=== PATIENT | male | born 1970 | race American Indian/Alaskan Native ===

== ENCOUNTER 2017-06-10 21:56 | Emergency (ER) | payer BC ==
[2017-06-10 23:52] LABS: Bilirubin,Urine NEG (Negative); Blood,Urine NEG (Negative); Color,Urine Yellow (Yellow); Mucus,Urine FEW /HPF; Protein,Urine <15 mg/dL mg/dL (Negative); Urobilinogen,Urine < 2.0 mg/dL (<2.0)
[2017-06-10 23:55] LABS: RBC,Urine < 1.0 /HPF (0.0-6.0); WBC,Urine < 1.0 /HPF (0.0-6.0)
[2017-06-11 01:06] VITALS: BP 148/100
[2017-06-11] MEDS ORDERED: TORADOL IM ONE (01:14)
[2017-06-11] MEDS ORDERED: FLEXERIL PO ONE (01:15)
--- NOTE | 2017-06-11 01:17 | Emergency Department Report ---
ED General Adult HPI - General Chief complaint: Back Pain/Injury Stated complaint: RIGHT SIDE PAIN Time Seen by Provider: 06/11/17 01:12 Source: patient Mode of arrival: Ambulatory Limitations: No Limitations - History of Present Illness Initial comments: 46-year-old -[place] male with no past medical history comes in complaining of right thigh pain after lying on the floor all day long. Patient reports that he was laying on the floor got up to go shower decided to go downtown to take a walk came back that an MB and started having right side pain. Patient reports that the pain is intermittent and this worse when he coughs or sneezes. He denies any trauma. It was noted the patient has elevated blood pressure in triage of 180/105. Patient reports that he was not aware that he has elevated blood pressure. He denies any headache no chest pain or shortness of breathing. He denies any dysuria no hematuria or abdominal pain no chest pain. He takes no medications on a daily basis and has no known drug allergies. -: Sudden, This evening Radiation: non-radiation Severity scale (0 -10): 3 Quality: stabbing Consistency: intermittent Improves with: rest Worsens with: movement (sudden movement ) Associated Symptoms: denies other symptoms Treatments Prior to Arrival: none - Related Data Previous Rx's Medication Instructions Recorded Last Taken Type Cyclobenzaprine [Flexeril 10 MG 10 mg PO TID PRN #15 tablet 06/11/17 Unknown Rx TAB] Ibuprofen [Motrin 800 MG tab] 800 mg PO Q8HR PRN #30 tablet 06/11/17 Unknown Rx Allergies Allergy/AdvReac Type Severity Reaction Status Date / Time No Known Allergies Allergy Unverified 06/10/17 23:25 ED Review of Systems ROS: Stated complaint: RIGHT SIDE PAIN Other details as noted in HPI Constitutional: denies: chills, fever Eyes: denies: eye pain, eye discharge, vision change ENT: denies: ear pain, throat pain Respiratory: denies: cough, shortness of breath, wheezing Cardiovascular: denies: chest pain, palpitations Endocrine: no symptoms reported Gastrointestinal: denies: abdominal pain, nausea, diarrhea Genitourinary: denies: urgency, dysuria Musculoskeletal: other (right flank intermittent pain) Skin: denies: rash, lesions Neurological: denies: headache, weakness, paresthesias Psychiatric: denies: anxiety, depression Hematological/Lymphatic: denies: easy bleeding, easy bruising ED Past Medical Hx - Past Medical History Previous Medical History?: No - Surgical History Past Surgical History?: No - Social History Smoking Status: Never Smoker Substance Use Type: None - Medications Home Medications: Home Medications Medication Instructions Recorded Confirmed Last Taken Type Cyclobenzaprine [Flexeril 10 MG 10 mg PO TID PRN #15 tablet 06/11/17 Unknown Rx TAB] Ibuprofen [Motrin 800 MG tab] 800 mg PO Q8HR PRN #30 tablet 06/11/17 Unknown Rx ED Physical Exam - General Limitations: No Limitations General appearance: alert, in no apparent distress - Head Head exam: Present: atraumatic, normocephalic - Eye Eye exam: Present: normal appearance - ENT ENT exam: Present: mucous membranes moist - Neck Neck exam: Present: normal inspection - Respiratory Respiratory exam: Present: normal lung sounds bilaterally. Absent: respiratory distress - Cardiovascular Cardiovascular Exam: Present: regular rate, normal rhythm. Absent: systolic murmur, diastolic murmur, rubs, gallop - GI/Abdominal GI/Abdominal exam: Present: soft, normal bowel sounds - Rectal Rectal exam: Present: deferred - Extremities Exam Extremities exam: Present: normal inspection - Back Exam Back exam: Present: normal inspection, other (right side tenderness) - Neurological Exam Neurological exam: Present: alert, oriented X3 - Psychiatric Psychiatric exam: Present: normal affect, normal mood - Skin Skin exam: Present: warm, dry, intact, normal color. Absent: rash ED Course Vital Signs 06/10/17 06/11/17 23:15 01:05 Temperature 98.7 F 99.0 F Pulse Rate 90 72 Respiratory 18 16 Rate Blood Pressure 180/105 Blood Pressure 148/100 [Right] O2 Sat by Pulse 99 99 Oximetry ED Medical Decision Making - Medical Decision Making Patient's been evaluated with this provider fast track. Discussed the patient that we will try Toradol and Flexeril to help with his right side pain. Since patient denies any shortness of breathing normal respiratory examination no recent traumas we will treat patient conservatively with ibuprofen and Flexeril. I discussed the patient if symptoms persist or gets worse or starts having shortness of breath nausea vomiting diaphoresis to return back to the emergency room immediately patient verbalized understanding Critical care attestation.: If time is entered above; I have spent that time in minutes in the direct care of this critically ill patient, excluding procedure time. ED Disposition Clinical Impression: Right-sided chest wall pain Disposition: TO HOME OR SELFCARE Is pt being admited?: No Does the pt Need Aspirin: No Condition: Stable Instructions: Chest Pain (ED) Additional Instructions: Please take ibuprofen and Flexeril as needed for pain. If symptoms persist or gets worse please return back to the emergency room or follow-up with her primary care provider. Prescriptions: Cyclobenzaprine [Flexeril 10 MG TAB] 10 mg PO TID PRN #15 tablet PRN Reason: Muscle Spasm Ibuprofen [Motrin 800 MG tab] 800 mg PO Q8HR PRN #30 tablet PRN Reason: Pain Referrals: PRIMARY CARE,MD [Primary Care Provider] - 3-5 Days your,provider [Other] - 3-5 Days
== END 2017-06-11 01:30 | disposition home or self-care (01) ==
LOC: ED 21:56
DX: R07.89 Other chest pain (principal); M54.9 Dorsalgia, unspecified; R03.0 Elevated blood-pressure reading, without diagnosis of hypertension
CPT/HCPCS: 81001; 96372; 99283; J1885

== ENCOUNTER 2018-04-09 09:30 | Outpatient (CLI) | payer BC ==
[2018-04-09 10:50] LABS: Basophils % (Auto) 0.3 % (0.0-1.8); Eosinophils # (Auto) 0.1 K/mm3 (0.0-0.4); Eosinophils % (Auto) 2.5 % (0.0-4.3); Hematocrit 39.8 % (35.5-45.6); Hemoglobin 13.8 gm/dl (11.8-15.2); Lymphocytes # (Auto) 2.4 K/mm3 (1.2-5.4); Lymphocytes % (Auto) 46.2 % (13.4-35.0); Mean Corpuscular HGB Conc 35 % (32-34); Mean Corpuscular Volume 79 fl (84-94); Monocytes # (Auto) 0.3 K/mm3 (0.0-0.8); Monocytes % (Auto) 6.3 % (0.0-7.3); Platelet Count 171 K/mm3 (140-440); Red Blood Count 5.04 M/mm3 (3.65-5.03); Red Cell Distribution Width 13.7 % (13.2-15.2)
[2018-04-09 11:08] LABS: Alanine Aminotransferase 60 units/L (7-56); Albumin 4.5 g/dL (3.9-5); BUN/Creatinine Ratio 10; Blood Urea Nitrogen 12 mg/dL (9-20); Calcium 9.6 mg/dL (8.4-10.2); Chol/HDL Ratio 6.87 %; HDL Cholesterol 32 mg/dL (40-59); Hemolysis Index 4; LDL Cholesterol,Direct 182 mg/dL (50-130)
== END 2018-04-09 09:31 | disposition home or self-care (01) ==
LOC: LAB 09:30
PROVIDERS: ATTEND Internal Medicine
DX: Z00.01 Encounter for general adult medical examination with abnormal findings (principal); E78.5 Hyperlipidemia, unspecified
CPT/HCPCS: 36415; 80053; 80061; 82306; 82607; 83036; 84443; 85025

== ENCOUNTER 2019-02-17 09:14 | Outpatient (CLI) | payer BC ==
[2019-02-17 13:10] LABS: Chol/HDL Ratio 4.35 %
[2019-02-20 08:44] LABS: Vitamin D, 25-OH, D2 44 ng/mL
== END 2019-02-17 09:15 | disposition home or self-care (01) ==
LOC: LAB 09:14
PROVIDERS: ATTEND Internal Medicine
DX: R73.03 Prediabetes (principal); E55.9 Vitamin D deficiency, unspecified; E78.5 Hyperlipidemia, unspecified
CPT/HCPCS: 36415; 80061; 82306; 83036

== ENCOUNTER 2019-12-26 07:47 | Day surgery (SDC) | payer BC ==
[2019-12-26] MEDS ORDERED: SODIUM CHLORIDE 0.9% 1000 ML 1,000 ML ONE (08:38)
--- NOTE | 2019-12-26 08:42 | Anesthesia Consultation ---
Anesthesia Consult and Med Hx Date of service: 12/26/19 - Airway Anesthetic Teeth Evaluation: Good ROM Head & Neck: Adequate Mental/Hyoid Distance: Adequate Mallampati Class: Class II Intubation Access Assessment: Probably Good - Cardiac Exam Cardiac Exam: RRR - Pre-Operative Health Status ASA Pre-Surgery Classification: ASA2 Proposed Anesthetic Plan: MAC - Pulmonary Hx Smoking: No Hx Asthma: No Hx Respiratory Symptoms: No SOB: No COPD: No - Cardiovascular System Hx Hypertension: Yes
--- NOTE | 2019-12-26 08:44 | Anesthesia Day of Surgery ---
Anesthesia Day of Surgery - Day of Surgery Patient Examined: Yes Patient H&P Reviewed: Yes Patient is NPO: Yes Beta Blockers: No Franklyn's Test: N/A
[2019-12-26] MEDS ORDERED: SODIUM CHLORIDE 0.9% 1000 ML 1,000 ML IV SCH (09:30)
[2019-12-26] MEDS ORDERED: propofoL 200 MG/20 ML VIAL IV ONE (09:37)
[2019-12-26] MEDS ORDERED: SUCCINYLCHOLINE CHLORIDE 200 MG/10 ML INJ MDV ONE (09:37)
--- NOTE | 2019-12-26 10:11 | Procedure Note ---
Date of procedure: 12/26/19 Pre-op diagnosis: Colon Polyp screening/ F/H/O Colon Cancer (uncle) Post-op diagnosis: other (No Colon Polyps noted/ Moderate,Proximal colon Diverticuli/ Minor,Internal Hemorrhoid) Procedure: Colonoscopy Anesthesia: MAC Surgeon: EMMA DODSON Estimated blood loss: none Pathology: none Condition: stable Disposition: same day (Encourage fiber intake. Resume home medication and follow up in 1 to 2 weeks ([phone]).)
--- NOTE | 2019-12-26 10:22 | Operative Report ---
PROCEDURE: Colonoscopy. INDICATIONS: This is a 49-year-old slightly obese -Greek gentleman with an underlying history of hypertension, hyperlipidemia, family history of cancer. The patient's uncle had colon cancer. Colonoscopy was done as part of colon polyp screening. DESCRIPTION OF PROCEDURE: The procedure was done after getting informed consent with MAC anesthesia. Initial rectal exam was unremarkable. Instrument was passed through the rectum onto the cecum, which was identified by the ileocecal valve and the appendiceal orifice. Visualization was fair to good. There were several diverticula noted in the proximal colon. The cecum, ascending colon other than for the diverticula did not show any significant pathology. The transverse colon, descending colon, and sigmoid likewise showed normal mucosa and the rectum showed minor internal hemorrhoid on the retroverted view. There was no bleeding associated with the procedure. No complications associated with the procedure. ASSESSMENT: Colon polyp screening, family history of cancer, the patient's uncle had colon cancer. No colon polyps noted. Moderate proximal colon diverticula, minor internal hemorrhoid. PLAN: The patient will be encouraged to take fiber supplements. Resume home medication. Follow up in the office in 1-2 weeks' time. The procedure was done in the GI Lab with assistance of the GI Lab team, which included RN, Courtney Zimmerman; Rafa lino and with assistance of Anesthesia. Thank you for the kind referral. JOB# [id number] EMMA/THERESA
[2019-12-26 10:29] VITALS: BP 134/89
--- NOTE | 2019-12-26 13:37 | Post Anesthesia Evaluation ---
- Post Anesthesia Evaluation Patient Participated: Yes Airway Patent: Yes Stable Respiratory Function: Yes Nausea/Vomiting: No Temp > 96.8F: Yes Pain Manageable: Yes Adequeate Hydration: Yes Anesthesia Complications: No Block Receding Appropriately: Not Applicable Patient on Ventilator: No
== END 2019-12-26 11:25 | disposition home or self-care (01) ==
LOC: GIO 07:47
DX: Z12.11 Encounter for screening for malignant neoplasm of colon (principal); K57.30 Diverticulosis of large intestine without perforation or abscess without bleeding; K64.8 Other hemorrhoids; I10 Essential (primary) hypertension; G47.30 Sleep apnea, unspecified; E78.5 Hyperlipidemia, unspecified; Z80.0 Family history of malignant neoplasm of digestive organs; Z79.899 Other long term (current) drug therapy
CPT/HCPCS: 45378; J2704; J7030; J0330

== ENCOUNTER 2020-08-22 14:49 | Emergency (ER) | payer BC ==
[2020-08-22 15:42] VITALS: BP 147/103
--- NOTE | 2020-08-22 15:49 | Emergency Department Report ---
Blank Doc - Documentation Documentation: 49-year-old male that presents with dizziness and headaches x 3 days. Deneis any trauma or injuries. denies one sided weakens. Denies any other complaints or symptoms Exam: neuro exam unremarkable. no one sided weakness. EOMI. PERRLA. Facial symmetrical with no facial drooping. 1- This is a initial triage assessment/medical screening only. Full assessment and work-up will be completed once the patient is in proper hospital gown, ED bed and in a private room setting. This initial assessment/diagnostic orders/clinical plan/ treatment(s) is/are subject to change based on pt's health status, clinical progression and re-assessment by fellow clinical providers in the ED. Further treatment and workup at subsequent clinical providers discretion. Patient/guardians urged not to elope from ED as their condition may be serious if not clinically assessed and managed. 2-labs with orthostatic vitals
[2020-08-22 16:20] LABS: Basophils % (Auto) 0.4 % (0.0-1.8); Eosinophils # (Auto) 0.1 K/mm3 (0.0-0.4); Eosinophils % (Auto) 0.9 % (0.0-4.3); Hematocrit 41.9 % (35.5-45.6); Hemoglobin 14.6 gm/dl (11.8-15.2); Lymphocytes # (Auto) 2.1 K/mm3 (1.2-5.4); Lymphocytes % (Auto) 27.6 % (13.4-35.0); Mean Corpuscular HGB Conc 35 % (32-34); Mean Corpuscular Volume 78 fl (84-94); Monocytes # (Auto) 0.4 K/mm3 (0.0-0.8); Monocytes % (Auto) 5.1 % (0.0-7.3); Platelet Count 208 K/mm3 (140-440); Red Blood Count 5.35 M/mm3 (3.65-5.03); Red Cell Distribution Width 14.5 % (13.2-15.2)
[2020-08-22 17:17] LABS: Alanine Aminotransferase 78 units/L (7-56); BUN/Creatinine Ratio 8; Blood Urea Nitrogen 10 mg/dL (9-20); Hemolysis Index 12
== END 2020-08-22 21:00 | disposition left against medical advice (07) ==
LOC: ED 14:49
DX: R42 Dizziness and giddiness (principal); Z53.21 Procedure and treatment not carried out due to patient leaving prior to being seen by health care provider
CPT/HCPCS: 36415; 80053; 85025

== ENCOUNTER 2020-09-03 08:41 | Outpatient (CLI) | payer BC ==
--- NOTE | 2020-09-03 10:31 | Ultrasound Report ---
ULTRASOUND ABDOMEN, COMPLETE INDICATION: ABNORMAL RESULTS OF LIVER FUNCTION STUDIES. COMPARISON: No relevant prior imaging study available. FINDINGS: Pancreas: No significant abnormality. Abdominal Aorta: No significant abnormality. IVC: No significant abnormality. Liver: The liver measures 18.6 cm in length. Liver is enlarged and echogenic consistent with moderat e steatosis. No focal liver lesion is detected on ultrasound. Normal hepatopedal blood flow in the ma in portal vein. Gallbladder: No significant abnormality. Bile ducts: No significant abnormality. Common bile duct measures 5.7 mm. Kidneys: Right: 10.0 cm in length. No significant abnormality. Left: 11.5 cm in length. No signif icant abnormality. Spleen: No significant abnormality. The spleen measures 12.8 cm. Free fluid: None. Additional Findings: None. IMPRESSION: Mild hepatomegaly with steatosis.. Signer Name: Clyde Jacob Jr, MD Signed: 09/03/2020 10:26 AM Workstation Name: [id number]
== END 2020-09-03 08:42 | disposition home or self-care (01) ==
LOC: US 08:41
PROVIDERS: ATTEND Internal Medicine
DX: K76.0 Fatty (change of) liver, not elsewhere classified (principal); R16.0 Hepatomegaly, not elsewhere classified
CPT/HCPCS: 76700